=== PATIENT | female | born 1990 | race Caucasian/White ===

== ENCOUNTER 2017-06-13 08:18 | Emergency (ER) | payer SELFPAY ==
[~2017-06-13] VITALS: Ht 152.4 cm; Wt 60.5 kg
[2017-06-13 09:24] LABS: HEMATOCRIT 41.8 % (36.0-46.0); MCH 30.5 PG (29.0-34.0); MCHC 35.4 G/DL (30.0-36.0); MCV 86.2 FL (83-99); MEAN PLAT.VOLUME 9.7 uM^3 (9.5-12.4); PLATELET COUNT 211 K/uL (156-360); RBC DIS.WIDTH-CV 11.2 % (11.8-14.6); RBC DIS.WIDTH-SD 35.1 % (39-53); RED BLOOD COUNT 4.85 M/uL (3.80-5.20); WHITE BLOOD COUNT 8.4 K/uL (4.1-10.2)
[2017-06-13 09:33] LABS: CHLORIDE 107 mEq/L (99-109); SODIUM 140 mEq/L (136-147)
[2017-06-13 09:35] LABS: GLUCOSE 74 mg/dL (70-99)
[2017-06-13 09:36] LABS: ANION GAP 13 MEQ/L (2-14)
[2017-06-13 09:39] LABS: GFR ESTIMATE (CALCULATED) > 59 mL/min/
[2017-06-13 09:40] LABS: UREA NITROGEN (BUN) 8 mg/dL (9-23)
[2017-06-13 10:05] LABS: QUANTITATIVE HCG 218546.6 MIU/ML
[2017-06-13 10:07] LABS: ADD MIUA? YES; BILIRUBIN NEGATIVE; BLOOD NEGATIVE; COLOR YELLOW ((YELLOW)); GLUCOSE (STRIP) NEGATIVE; KETONES 20; LEUKOCYTES NEGATIVE; NITRITE NEGATIVE; PROTEIN (STRIP) 30; UROBILINOGEN 0.2 MG/DL (0.2-1.0)
[2017-06-13 10:16] LABS: BACTERIA RARE /HPF; EPITHELIAL CELLS 1+ /HPF; MUCUS 3+ /LPF; RED BLOOD CELLS 0-5 /HPF (0-5); UCUL ADDED? NO; WHITE BLOOD CELLS 0-5 /HPF (0-5)
[2017-06-13 11:35] VITALS: BP 111/70
== END 2017-06-13 11:35 | disposition home or self-care (01) ==
LOC: EME 08:18
PROVIDERS: Emergency Medicine
DX: O26.891 Other specified pregnancy related conditions, first trimester (principal); R55 Syncope and collapse; Z3A.08 8 weeks gestation of pregnancy
CPT/HCPCS: 80048; 81003; 84702; 85027; 93005; 99281; 99284

== ENCOUNTER → 2017-10-29 | Outpatient (CLI) | payer BC ==
[~2017-10-29] VITALS: Ht 154.9 cm; Wt 66.0 kg
[~2017-10-29] MED LIST: PRENATAL TABLE1 EAC3 PO
[2017-10-29 15:20] VITALS: BP 123/84
== END | disposition home or self-care (01) ==
LOC: IVINF 15:02
DX: Z34.83 Encounter for supervision of other normal pregnancy, third trimester (principal); Z3A.28 28 weeks gestation of pregnancy; Z67.11 Type A blood, Rh negative
CPT/HCPCS: 96372; J2790

== ENCOUNTER 2018-01-17 23:29 | Inpatient (IN) | payer BC ==
[~2018-01-17] VITALS: Ht 152.4 cm; Wt 73.9 kg
[2018-01-17 23:47] VITALS: BP 171/79
[2018-01-18] VITALS (29 sets, daily range): BP systolic 128–191; BP diastolic 70–113
[2018-01-18] MEDS ORDERED: MACROBID100 MG PO (00:36)
[2018-01-18 04:04] LABS: BASOPHIL (%) 0.2 % (0-1); EOSINOPHIL (%) 0.1 % (0-5); HEMATOCRIT 34.8 % (36.0-46.0); HEMOGLOBIN 12.3 G/DL (11.9-15.5); IMMATURE GRANULOCYTE (%) 0.5 % (0.0-0.7); LYMPHOCYTE (%) 8.6 % (15-42); LYMPHOCYTE COUNT 1.5 K/uL (1.0-2.8); MCH 30.4 PG (29.0-34.0); MCHC 35.3 G/DL (30.0-36.0); MCV 86.1 FL (83-99); MONOCYTE (%) 2.7 % (3-12); MONOCYTE COUNT 0.5 K/uL (0-0.8); NEUTROPHIL (%) 87.9 % (45-76); NEUTROPHIL COUNT 14.9 K/uL (1.8-6.4); PLATELET COUNT 192 K/uL (156-360); RBC DIS.WIDTH-CV 12.1 % (11.8-14.6); RBC DIS.WIDTH-SD 37.7 % (39-53); RED BLOOD COUNT 4.04 M/uL (3.80-5.20); WHITE BLOOD COUNT 16.9 K/uL (4.1-10.2)
[2018-01-18 04:15] LABS: ALBUMIN 3.4 g/dL (3.2-4.8); CHLORIDE 108 mEq/L (99-109); POTASSIUM 4.2 mEq/L (3.7-5.4); SODIUM 136 mEq/L (136-147)
[2018-01-18 04:17] LABS: GLUCOSE 106 mg/dL (70-99); TOTAL PROTEIN 6.6 g/dL (6.4-8.3)
[2018-01-18 04:19] LABS: TOTAL BILIRUBIN 0.7 mg/dL (0.0-1.0)
[2018-01-18 04:21] LABS: ALKALINE PHOSPHATASE 184 IU/L (3-129); CREATININE 0.7 mg/dL (0.6-1.3); GFR ESTIMATE (CALCULATED) > 59 mL/min/
[2018-01-18 04:22] LABS: UREA NITROGEN (BUN) 12 mg/dL (9-23)
[2018-01-18 04:23] LABS: AST (GOT) 17 IU/L (2-34)
[2018-01-18 04:24] LABS: ALT (GPT) 12 IU/L (3-49)
[2018-01-18 05:09] LABS: UR CREATININE CONCENTRATION 87.7 MG/DL
[2018-01-18 09:11] LABS: AMPHETAMINE NEGATIVE (500 ng/mL); BARBITURATES NEGATIVE (200 ng/mL); BENZODIAZEPINES NEGATIVE (150 ng/mL); BUPRENORPHINE NEGATIVE (10 ng/mL); COCAINE NEGATIVE (150 ng/mL); METHADONE NEGATIVE (200 ng/mL); METHAMPHETAMINE NEGATIVE (500 ng/mL); OPIATES (MORPHINE) NEGATIVE (100 ng/mL); OXYCODONE NEGATIVE (100 ng/mL); PHENCYCLIDINE NEGATIVE (25 ng/mL); PROPOXYPHENE NEGATIVE (300 ng/mL); THC CANNABINOIDS NEGATIVE (50 ng/mL); TRICYCLIC ANTIDEPRESSANTS NEGATIVE (300 ng/mL)
[2018-01-18] MEDS ORDERED: IBUPROFEN800 MG PO (17:37)
[2018-01-19] VITALS (7 sets, daily range): BP systolic 118–143; BP diastolic 64–90
[2018-01-20 04:21] VITALS: BP 112/57
== END 2018-01-20 14:00 | disposition home or self-care (01) | DRG 775 ==
LOC: LDRP-OP 23:29 → 2WEST 23:30 → LDRP-OP 02-20 05:58
PROVIDERS: Advanced Practice Midwife
PROC: 3E033VJ Introduction of Other Hormone into Peripheral Vein, Percutaneous Approach (ICD-10-PCS; principal; 2018-01-18)
PROC: 10E0XZZ Delivery of Products of Conception, External Approach (ICD-10-PCS; principal; 2018-01-18)
DX: O13.4 Gestational [pregnancy-induced] hypertension without significant proteinuria, complicating childbirth (principal); O70.0 First degree perineal laceration during delivery; Z37.0 Single live birth; Z3A.39 39 weeks gestation of pregnancy
CPT/HCPCS: 80053; 82570; 84156; 85025; 85025 91; C1755; G0378; J0595; J3010; J7120